=== PATIENT | male | born 1970 | race Caucasian/White ===

== ENCOUNTER 2021-12-30 01:30 | Emergency (ER) | payer SELFPAY ==
[~2021-12-30] VITALS: Ht 177.8 cm; Wt 88.5 kg
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
--- NOTE | 2021-12-30 02:01 | NUR ---
Patient does not wish to proceed with medical care recommended by Dr. TAYLOR. Patient given information related to possible complications, up to and including , which could occur as a result of leaving the hospital at this time. Patient verbalizes understanding of risks involved due to leaving against medical advice. Patient has signed AMA form. PT ambulatory with a steady gait
[2021-12-30 03:51] VITALS: BP 131/77
== END 2021-12-30 02:01 | disposition home or self-care (01) ==
LOC: ER 01:33
DX: S01.21XA Laceration without foreign body of nose, initial encounter (principal); S09.90XA Unspecified injury of head, initial encounter; Y08.89XA Assault by other specified means, initial encounter; Y93.89 Activity, other specified; Y92.89 Other specified places as the place of occurrence of the external cause; Y99.8 Other external cause status
CPT/HCPCS: 99281; A6403